=== PATIENT | male | born 1985 | race Caucasian/White ===

== ENCOUNTER 2016-10-02 12:26 | Emergency (ER) | payer MEDICAID, OTHER ==
[2016-10-02 12:36] VITALS: BP 154/98
[2016-10-02] MEDS ORDERED: Cyclobenzaprine TAB* 10 MG PO ONE (14:01)
[2016-10-02] MEDS ORDERED: Ibuprofen TAB* 800 MG PO ONE (14:01)
--- NOTE | 2016-10-09 15:29 | ED ---
Neck Pain - HPI Summary HPI Summary: Pt here w/ Rt sided cervical pain x past few days. Started as a soreness/ stiffness and has been progressing. Difficulty rotating his neck. Admits he's on his computer many hours a day and this may have caused and worsened his sx. He's tried low dose ibuprofen w/ brief relief. Denies numbness, tingling, weakness into arm and no headache, fever, chills or change in vision. He's here because the pain is becoming constant and he's not sure what to do. No known h/ o neck, back or shoulder injury. Reports this has happened in the past but usually goes away on it's own after a few days. - History of Current Complaint Chief Complaint: EDNeckComplaint Stated Complaint: NECK PAIN Time Seen by Provider: 10/02/16 12:45 Hx Obtained From: Patient Pain Intensity: 6 Pain Scale Used: 0-10 Numeric - Allergies/Home Medications Allergies/Adverse Reactions: Allergies Allergy/AdvReac Type Severity Reaction Status Date / Time Codeine Allergy asthma Verified 10/08/16 18:15 attack Diphenhydramine Allergy asthma Verified 10/08/16 18:15 [From Benadryl] attack, sob PMH/Surg Hx/FS Hx/Imm Hx Previously Healthy: Yes Endocrine/Hematology History: Denies: Hx Anticoagulant Therapy, Hx Blood Disorders Infectious Disease History: Yes Infectious Disease History: Denies: Traveled Outside the [place] in Last 30 Days - Social History Alcohol Use: None Hx Substance Use: No Substance Use Type: Reports: None Hx Tobacco Use: No Smoking Status (MU): Never Smoked Tobacco Review of Systems Negative: Fever, Chills, Fatigue Negative: Photophobia, Blurred Vision, Diplopia Negative: Sore Throat, Ear Ache, Nasal Discharge Negative: Chest Pain Negative: Shortness Of Breath Negative: Abdominal Pain, Vomiting, Diarrhea, Nausea Positive: no symptoms reported Musculoskeletal: Other - see HPI Negative: Rash, Bruising Neurological: Negative Psychological: Normal All Other Systems Reviewed And Are Negative: Yes Physical Exam Triage Information Reviewed: Yes Vital Signs On Initial Exam: Initial Vitals Temp Pulse Resp BP Pulse Ox 98.0 F 76 16 154/98 100 10/02/16 12:30 10/02/16 12:30 10/02/16 12:30 10/02/16 12:30 10/02/16 12:30 Vital Signs Reviewed: Yes Appearance: Positive: Well-Appearing, Well-Nourished, Pain Distress - mild Skin: Positive: Warm, Dry - no ecchymosis nor erythema over affected area Head/Face: Positive: Normal Head/Face Inspection - sinuses NTTP Eyes: Positive: Normal, EOMI, YAJAIRA, Conjunctiva Clear ENT: Positive: Normal ENT inspection, Hearing grossly normal, Pharynx normal, TMs normal. Negative: Nasal congestion, Nasal drainage Dental: Negative: Abscess @ Neck: Positive: No Lymphadenopathy, Other: - hypertonic paracervical and trapezius mm Lt > Rt - TTP into Respiratory/Lung Sounds: Positive: Clear to Auscultation, Breath Sounds Present. Negative: Rales, Rhonchi, Stridor, Wheezes Cardiovascular: Positive: Normal, RRR, Pulses are Symmetrical in both Upper and Lower Extremities Musculoskeletal: Positive: Strength/ROM Intact - UE's FROM w/o restriction; Lt shoulder abduction end range trigger neck discomfort; spinous pp are NTTP, Limited @ - cervical ROM limited d/t stiffness/pain Neurological: Positive: Normal, Sensory/Motor Intact, Alert, Oriented to Person Place, Time, CN Intact II-III, Reflexes Intact Psychiatric: Positive: Normal - Liset Coma Scale Coma Scale Total: 15 Diagnostics - Vital Signs Vital Signs Temp Pulse Resp BP Pulse Ox 10/02/16 14:19 15 10/02/16 12:30 98.0 F 76 16 154/98 100 - Laboratory Lab Statement: Any lab studies that have been ordered have been reviewed, and results considered in the medical decision making process. Neck Course/Dx - Diagnoses Provider Diagnoses: CERVICAL STRAIN Discharge - Discharge Plan Condition: Stable Disposition: HOME Prescriptions: Cyclobenzaprine TAB* [Flexeril TAB*] 10 mg PO TID PRN #15 tab PRN Reason: Pain Patient Education Materials: Cervical Strain (ED) Referrals: Carolee Burton MD [Medical Doctor] - Additional Instructions: Heat in the morning with gentle stretches followed by ice. You may also take ibuprofen with food as needed for pain Additionally, a muscle relaxer has been prescribed. If your pain does not improve with ibuprofen, you may take this however note it may make you drowsy. Follow-up with PCP this week as you may benefit from a referral to physical therapy. *If you develop headache, weakness, change in vision, vomiting, fever, return to ED
== END 2016-10-02 14:19 | disposition home or self-care (01) ==
LOC: SUPCPDRO 12:26 → ED 12:26
DX: S16.1XXA Strain of muscle, fascia and tendon at neck level, initial encounter (principal); M54.2 Cervicalgia; X58.XXXA Exposure to other specified factors, initial encounter; Y93.89 Activity, other specified; Y92.9 Unspecified place or not applicable; Y99.9 Unspecified external cause status
CPT/HCPCS: 99282; A9270-GY

== ENCOUNTER 2016-10-08 18:10 | Emergency (ER) | payer MEDICAID ==
[2016-10-08 18:15] VITALS: BP 131/75
--- NOTE | 2016-10-08 19:33 | ED ---
Neck Pain - HPI Summary HPI Summary: 31 M presents with neck pain for a couple months. He states his pain has increased over the past couple days. He was seen here on Wednesday and was diagnosed with a cervical strain. He states that the flexeril and ibuprofen helped. His pain is not midline. He denies any numbness, tingling, or weakness into his arms. The location of his pain has not changed over the past month. He denies any injury to the area. He states the pain has caused him to not move his neck as much. He states that when he moved his neck he gets a pulling sensation in his muscles. - History of Current Complaint Chief Complaint: EDNeckComplaint Stated Complaint: NECK PAIN Time Seen by Provider: 10/08/16 19:23 Pain Intensity: 8 - Allergies/Home Medications Allergies/Adverse Reactions: Allergies Allergy/AdvReac Type Severity Reaction Status Date / Time Codeine Allergy asthma Verified 10/08/16 18:15 attack Diphenhydramine Allergy asthma Verified 10/08/16 18:15 [From Benadryl] attack, sob PMH/Surg Hx/FS Hx/Imm Hx Endocrine/Hematology History: Denies: Hx Diabetes Cardiovascular History: Denies: Hx Hypertension Infectious Disease History: No Infectious Disease History: Denies: Traveled Outside the [place] in Last 30 Days - Family History Known Family History: Negative: Cardiac Disease - Social History Alcohol Use: None Substance Use Type: Reports: None Smoking Status (MU): Never Smoked Tobacco Review of Systems Negative: Fever Negative: Chest Pain Negative: Shortness Of Breath Positive: Myalgia - neck pain All Other Systems Reviewed And Are Negative: Yes Physical Exam Triage Information Reviewed: Yes Vital Signs On Initial Exam: Initial Vitals Temp Pulse Resp BP Pulse Ox 98.3 F 83 16 131/75 100 10/08/16 18:13 10/08/16 18:13 10/08/16 18:13 10/08/16 18:13 10/08/16 18:13 Vital Signs Reviewed: Yes Appearance: Positive: Well-Appearing Skin: Positive: Warm, Dry Head/Face: Positive: Normal Head/Face Inspection Eyes: Positive: Normal, Conjunctiva Clear ENT: Positive: Normal ENT inspection, Pharynx normal, TMs normal Respiratory/Lung Sounds: Positive: Clear to Auscultation, Decreased Breath Sounds Cardiovascular: Positive: Normal, RRR Musculoskeletal: Positive: Limited @ - neck due to pain, Other - good inventory coordinator strength, capillary refill <2 secs, no midline tenderness on palpation, tender over trapezius muscle, Neurological: Positive: Reflexes Intact - biceps Diagnostics - Vital Signs Vital Signs Temp Pulse Resp BP Pulse Ox 10/08/16 18:13 98.3 F 83 16 131/75 100 - Laboratory Lab Statement: Any lab studies that have been ordered have been reviewed, and results considered in the medical decision making process. Neck Course/Dx - Course Course Of Treatment: 31M presents with acute on chronic neck pain, describes it as a pulling sensation, improvement with ibupforen and flexeril but ran out, discussed do not see need for imaging as no injury, no change in pain location, no neuro symptoms, no midline tenderness, will treat conservatively and have follow up with primary which has appointment next week, patient agrees with plan - Diagnoses Differential Dx/HQI/PQRI: Positive: Cervical Fracture, Sprain, Strain Provider Diagnoses: Neck pain Discharge - Discharge Plan Condition: Good Disposition: HOME Prescriptions: Cyclobenzaprine TAB* [Flexeril TAB*] 10 mg PO TID PRN #9 tab PRN Reason: Pain Ibuprofen TAB* [Motrin TAB* 600 MG] 600 mg PO Q6H PRN #25 tab PRN Reason: Pain Lidocaine PATCH 5%* [Lidoderm 5% Patch*] 1 patch TRANSDERM DAILY #5 patch Patient Education Materials: Cervical Strain (ED) Additional Instructions: Take muscle relaxers up to three tablets at night to sleep Apply lidocaine patches to area for up to 12 hours in one 24 hour period Use ibuprofen or Tylenol for pain every 6 hours ice/heat area, move as much as possible Follow up with primary within 5 days, may benefit from PT Return to ED if develop any weakness or numbness or tingling in arms or develop any new or worsening symptoms
[2016-10-08] MEDS ORDERED: Ibuprofen TAB* 600 MG PO ONE (19:37)
[2016-10-08] MEDS ORDERED: Lidocaine PATCH 5%* 1 PATCH TRANSDERM ONE (19:38)
== END 2016-10-08 19:53 | disposition home or self-care (01) ==
LOC: ED 18:10
DX: M54.2 Cervicalgia (principal); Z88.6 Allergy status to analgesic agent
CPT/HCPCS: 99282; A9270-GY

== ENCOUNTER 2016-10-14 13:11 | Emergency (ER) | payer MEDICAID ==
[2016-10-14] MEDS ORDERED: Ketorolac INJ* 30 MG/ML 1 ML VIAL IV PUSH ONE (16:21)
[2016-10-14] MEDS ORDERED: Orphenadrine Citrate IV* 30 MG/ML 2 ML VIAL IV ONE (16:21)
[2016-10-14] MEDS ORDERED: HYDROcodone/ACETAMIN 5-325 MG* 1 TAB PO ONE ×2 (16:25→20:49)
--- NOTE | 2016-10-14 16:33 | ED ---
Neck Pain - HPI Summary HPI Summary: 31M presents with neck pain for 2 weeks. He denies any injury when the pain started. He did say that he was sitting for a long period of time in a uncomfortable chair working on his computer. He states the pain started on the right side of his neck but has moved to the left side of his neck. He states the pain is so intense that it makes him feel weak. He denies any numbness or tingling or midline tenderness. He has taken flexeril for his pain which he said helps but he ran out. He was also given lidocaine patches which his insurance company would not cover. He was seen by his primary and prescribed norco which he said helped but he ran out. His primary did lab work which he said was abnormal but they never told him that was wrong. He was suppose to follow up with his primary today but the pain was so bad that he could not go to his appointment. He has been holding his neck in flexion and does not want to move it do to the pain. Last dose of ibuprofen was last night. - History of Current Complaint Pain Intensity: 10 <Venecia Seth - Last Filed: 10/14/16 21:32> <Luis Mejia - Last Filed: 10/15/16 12:31> - History of Current Complaint Chief Complaint: EDNeckComplaint Stated Complaint: NECK PAIN - 1WK Time Seen by Provider: 10/14/16 16:05 - Allergies/Home Medications Allergies/Adverse Reactions: Allergies Allergy/AdvReac Type Severity Reaction Status Date / Time Codeine Allergy asthma Verified 10/08/16 18:15 attack Diphenhydramine Allergy asthma Verified 10/08/16 18:15 [From Benadryl] attack, sob PMH/Surg Hx/FS Hx/Imm Hx Endocrine/Hematology History: Denies: Hx Diabetes Cardiovascular History: Denies: Hx Hypertension Infectious Disease History: No Infectious Disease History: Denies: Traveled Outside the [place] in Last 30 Days - Family History Known Family History: Negative: Cardiac Disease - Social History Alcohol Use: None Substance Use Type: Reports: None Smoking Status (MU): Never Smoked Tobacco <Venecia Seth - Last Filed: 10/14/16 21:32> Review of Systems Negative: Fever Negative: Chest Pain Negative: Shortness Of Breath Positive: Myalgia - neck pain All Other Systems Reviewed And Are Negative: Yes <Arabella Sethbeth - Last Filed: 10/14/16 21:32> Physical Exam Triage Information Reviewed: Yes Vital Signs On Initial Exam: Initial Vitals Temp Pulse Resp BP Pulse Ox 99.2 F 132 20 110/67 100 10/14/16 13:22 10/14/16 13:22 10/14/16 13:22 10/14/16 13:22 10/14/16 13:22 Vital Signs Reviewed: Yes Appearance: Positive: Pain Distress Skin: Positive: Warm, Dry Head/Face: Positive: Normal Head/Face Inspection Eyes: Positive: Normal, Conjunctiva Clear ENT: Positive: Normal ENT inspection, Pharynx normal, TMs normal, Other - when touched ear yelled in pain but no evidence of otitis externa or interna on exam Neck: Positive: Supple, No Lymphadenopathy, Other: - no midline tenderness, muscle spasms presents on side of neck, refuses to move neck due to pain Respiratory/Lung Sounds: Positive: Clear to Auscultation, Breath Sounds Present Cardiovascular: Positive: Normal, RRR Musculoskeletal: Positive: Strength/ROM Intact - of upper extremities, Other - good pulses, capillary refill <2 secs, tender to palpation over sides of neck, no erythema present on neck Neurological: Positive: Sensory/Motor Intact, Reflexes Intact - biceps <DorindaVenecia - Last Filed: 10/14/16 21:32> Vital Signs On Initial Exam: Initial Vitals Temp Pulse Resp BP Pulse Ox 99.2 F 132 20 110/67 100 10/14/16 13:22 10/14/16 13:22 10/14/16 13:22 10/14/16 13:22 10/14/16 13:22 <Luis Mejia - Last Filed: 10/15/16 12:31> Diagnostics - Vital Signs Vital Signs Temp Pulse Resp BP Pulse Ox 10/14/16 13:22 99.2 F 132 20 110/67 100 - Laboratory Result Diagrams: 10/14/16 16:32 10/14/16 16:32 Lab Statement: Any lab studies that have been ordered have been reviewed, and results considered in the medical decision making process. - CT neck CT Interpretation: Positive (See Comments) - IMPRESSION: 1. The constellation of findings is consistent with deep soft tissue inflammatory change within the anterior and posterior neck. No loculated abscess collection evident within limits of noncontrast CT. Correlate with clinical assessment and consider contrast-enhanced CT of the neck for further assessment. 2. Negative for lymphadenopathy. 3. No abnormality of the bony cervical spine evident. CT Interpretation Completed By: Radiologist soft tissue CT Interpretation: Positive (See Comments) - IMPRESSION: 1. The constellation of findings is consistent with deep soft tissue inflammatory change within the anterior and posterior neck. No loculated abscess collection evident. 2. Negative for lymphadenopathy. CT Interpretation Completed By: Radiologist <Venecia Seth - Last Filed: 10/14/16 21:32> - Vital Signs Vital Signs Temp Pulse Resp BP Pulse Ox 10/14/16 21:22 98.9 F 90 16 112/74 10/14/16 18:51 18 10/14/16 15:45 98.5 F 92 18 110/74 99 10/14/16 13:22 99.2 F 132 20 110/67 100 - Laboratory Lab Results: Lab Results 10/14/16 10/14/16 Range/Units 16:32 16:32 WBC 6.3 (3.5-10.8) 10^3/ul RBC 4.61 (4.0-5.4) 10^6/ul Hgb 12.1 L (14.0-18.0) g/dl Hct 35 L (42-52) % MCV 77 L (80-94) fL MCH 26 L (27-31) pg MCHC 34 (31-36) g/dl RDW 13 (10.5-15) % Plt Count 203 (150-450) 10^3/ul MPV 8 (7.4-10.4) um3 Neut % (Auto) 82.6 (38-83) % Lymph % (Auto) 5.0 L (25-47) % [place] % (Auto) 11.9 H (1-9) % Eos % (Auto) 0.1 (0-6) % Baso % (Auto) 0.4 (0-2) % Absolute Neuts (auto) 5.2 (1.5-7.7) 10^3/ul Absolute Lymphs (auto) 0.3 L (1.0-4.8) 10^3/ul Absolute Monos (auto) 0.7 (0-0.8) 10^3/ul Absolute Eos (auto) 0 (0-0.6) 10^3/ul Absolute Basos (auto) 0 (0-0.2) 10^3/ul Absolute Nucleated RBC 0.01 10^3/ul Nucleated RBC % 0.1 ESR 105 H (0-14) mm/Hr Sodium 127 L (133-145) mmol/L Potassium 3.0 L (3.5-5.0) mmol/L Chloride 88 L (101-111) mmol/L Carbon Dioxide 27 (22-32) mmol/L Anion Gap 12 H (2-11) mmol/L BUN 17 (6-24) mg/dL Creatinine 1.18 H (0.67-1.17) mg/dL Est GFR ( Amer) 92.6 (>60) Est GFR (Non-Af Amer) 72.0 (>60) BUN/Creatinine Ratio 14.4 (8-20) Glucose 111 H (70-100) mg/dL Calcium 9.7 (8.6-10.3) mg/dL Total Bilirubin 1.10 H (0.2-1.0) mg/dL AST 62 H (13-39) U/L ALT 43 (7-52) U/L Alkaline Phosphatase 129 H (34-104) U/L C-React Prot High Sens 180.01 mg/L Total Protein 8.2 (6.4-8.9) g/dL Albumin 3.8 (3.2-5.2) g/dL Globulin 4.4 H (2-4) g/dL Albumin/Globulin Ratio 0.9 L (1-3) Result Diagrams: 10/14/16 16:32 10/14/16 16:32 Lab Statement: Any lab studies that have been ordered have been reviewed, and results considered in the medical decision making process. <Luis Mejia - Last Filed: 10/15/16 12:31> Neck Course/Dx - Course Course Of Treatment: 31 M presents with neck pain for 2 weeks, no trauma, no neuro symptoms, pain is not midline, has been seen here twice once by me and pain is in the same area as before, was being followed by [facility] and [facility] but ran out and states pain has become worst, states has been unable to move neck due to pain, no midline tenderness, states that lab work was abnormal at PCP but does not know what but they were going to start him on prednisone but they did not, states has not eaten much since wednesday due to too much pain to make meals, will check labs and get CT neck as previous xray was negative, CT shows deep soft tissue inflammatory change within anteroir and posteroir neck. called dr mehta who said have dr main examine the patient, dr main said to have CT with contrast performed, CT same reading as previous CT, discussed with dr Gee who said do not deal with conditions of the neck, Dr mehta looked at CT and did not see anything urgent, labs does not have WBC count but does have elevated CRP and ESR, has low K and NA gave fluids and oral K, discussed with dr mejia and dr main will d/c with pain medication and prednisone and have follow up with primary, warned of warning signs of infection and to return immediately, patient agrees with plan - Diagnoses Differential Dx/HQI/PQRI: Positive: Cervical Fracture, Sprain, Strain - Physician Notifications Discussed Care Of Patient With: dr mehta Time Discussed With Above Provider: 17:48 - have dr main see patient and give opinoin <Venecia Seth - Last Filed: 10/14/16 21:32> - Course Assessment/Plan: Patient was presented to Dr. main and seen and examined by Dr. Main <Luis Mejia - Last Filed: 10/15/16 12:31> - Diagnoses Provider Diagnoses: Neck pain Discharge <Venecia Seth - Last Filed: 10/14/16 21:32> <Luis Mejia - Last Filed: 10/15/16 12:31> - Discharge Plan Condition: Stable Disposition: HOME Prescriptions: HYDROcodone/ACETAMIN 5-325 MG* [[place] 5-325 TAB*] 1 tab PO Q6H PRN #12 tab MDD 4 PRN Reason: Pain Methylprednisolone [Medrol Dosepak 4 MG*] 4 mg PO .SEE PRESTON INSTRUCTION #1 packet Referrals: Carolee Burton MD [Medical Doctor] - Additional Instructions: Follow up with primary as soon as possible Take steroid packet as prescribed Use ibuprofen for pain every 6 hours and narcoctic for break through pain Return to ED if develop any fever, spreading redness on neck, shortness of breath or any new or worsening symptoms
[2016-10-14 16:45] LABS: Hematocrit 35 % (42-52); Hemoglobin 12.1 g/dl (14.0-18.0); Mean Corpuscular HGB Conc 34 g/dl (31-36); Mean Corpuscular Hemoglobin 26 pg (27-31); Mean Corpuscular Volume 77 fL (80-94); Mean Platelet Volume 8 um3 (7.4-10.4); Red Blood Count 4.61 10^6/ul (4.0-5.4); Red Cell Distribution Width 13 % (10.5-15); White Blood Count 6.3 10^3/ul (3.5-10.8)
[2016-10-14 16:49] LABS: Add Diff/Slide Review? Slide Review Added; Comments Flag Yes
[2016-10-14 17:06] LABS: Albumin 3.8 g/dL (3.2-5.2); BUN/Creatinine Ratio 14.4 (8-20); Calcium 9.7 mg/dL (8.6-10.3); EGFR African American 92.6 (>60); Globulin 4.4 g/dL (2-4); Total Bilirubin 1.1 mg/dL (0.2-1.0); Total Protein 8.2 g/dL (6.4-8.9)
[2016-10-14] MEDS ORDERED: NS 0.9% 1000 ML* 2,000 ML IV ONE (17:35)
--- NOTE | 2016-10-14 17:36 | RAD ---
INDICATION: LEFT worse than RIGHT bilateral neck pain for over one month worst in the last 2 weeks. Posterior pain with flexion. COMPARISON: January 20, 2012 CT. TECHNIQUE: Multidetector CT images foramen magnum to lung apices without contrast. Multiplanar reformation. REPORT: There is increased density/reticulation of the fat within the RIGHT posterior cervical space between the sternocleidomastoid muscle and paraspinal portion of the perivertebral muscular space as well as within the paraspinal portion of the RIGHT perivertebral muscular space with obscuration of the normal fascial planes between the skeletal musculature. Similar although less prominent finding evident at the paraspinal portion of the LEFT perivertebral muscular space. There is also bilateral edema and anterior posterior thickening of the mucosal pharyngeal space anterior to the spine from the level of the nasopharynx superiorly through the hyoid bone inferiorly. No loculated fluid collection evident within limits of noncontrast CT. Negative for abnormal soft tissue gas. No lymphadenopathy evident within the [id number]. Unremarkable visualized parotid and submandibular glands as well as the thyroid gland. Negative for cervical vertebral body fracture, osteolysis, or focal osseous lesion. Normal vertebral alignment and preserved disc spaces. 2 cm mucous retention cyst or polyp noted in the floor of the LEFT maxillary sinus. No paranasal sinus fluid levels evident within the [id number]. Clear mastoid air spaces. IMPRESSION: 1. The constellation of findings is consistent with deep soft tissue inflammatory change within the anterior and posterior neck. No loculated abscess collection evident within limits of noncontrast CT. Correlate with clinical assessment and consider contrast-enhanced CT of the neck for further assessment. 2. Negative for lymphadenopathy. 3. No abnormality of the bony cervical spine evident. Results discussed with HANNAH Seth 10/14/2016 5:32 PM EST
[2016-10-14] MEDS ORDERED: Iohexol 300* (CONTRAST) 10 ML SDV IV ONE (18:04)
[2016-10-14] MEDS ORDERED: HYDROmorphone INJ* 1 MG/ML CARPUJECT SYRINGE IV SLOW PU ONE (18:07)
--- NOTE | 2016-10-14 19:46 | RAD ---
INDICATION: LEFT worse than RIGHT bilateral neck pain for over one month worst in the last 2 weeks. Posterior pain with flexion. COMPARISON: January 20, 2012 CT. TECHNIQUE: Multidetector CT images foramen magnum to lung apices with 50 mL Omnipaque 300 IV contrast. Multiplanar reformation. REPORT: There is increased density/reticulation of the fat within the RIGHT posterior cervical space between the sternocleidomastoid muscle and paraspinal portion of the perivertebral muscular space as well as within the paraspinal portion of the RIGHT perivertebral muscular space with obscuration of the normal fascial planes between the skeletal musculature. Similar although less prominent finding evident at the paraspinal portion of the LEFT perivertebral muscular space. There is also bilateral edema and anterior posterior thickening of the mucosal pharyngeal space anterior to the spine from the level of the nasopharynx superiorly through the hyoid bone inferiorly. No loculated fluid collection evident. Negative for abnormal soft tissue gas. No abnormality evident within the cervical spinal canal within limits of CT. No lymphadenopathy evident within the [id number]. Unremarkable visualized parotid and submandibular glands as well as the thyroid gland. While poorly opacified due to timing of the contrast bolus above the C2 level the bilateral internal jugular veins appear patent inferior to the C2 level. Limited images through the superior mediastinum are remarkable for a normal range small volume of residual thymus tissue in the anterior mediastinum. Negative for enhancement or other abnormality at the disc spaces. Negative for osteolysis within the [id number]. 2 cm mucous retention cyst or polyp noted in the floor of the LEFT maxillary sinus. No paranasal sinus fluid levels evident within the [id number]. Clear mastoid air spaces. IMPRESSION: 1. The constellation of findings is consistent with deep soft tissue inflammatory change within the anterior and posterior neck. No loculated abscess collection evident. 2. Negative for lymphadenopathy.
[2016-10-14] MEDS ORDERED: methylPREDNISolone 125 MG* 2 ML VIAL IV ONE (20:26)
[2016-10-14] MEDS ORDERED: Potassium Chlor TAB* 20 MEQ TAB.ER PO ONE (20:42)
[2016-10-14 21:05] LABS: Erythrocyte Sed Rate 105 mm/Hr (0-14)
[2016-10-14 21:23] VITALS: BP 112/74
--- NOTE | 2016-10-17 08:10 | CONSULT ---
Consult Consult: Armand Villafuerte presented to the ED with the C/O a month of neck pain for which he had been seen previously and had xrays. He denied fevers or other C/O but described the pain as severe with any movement. He was seen by [facility]NE[facility] Seth and W/U thoroughly with CT and labs. His plain CT showed inflammatory changes and there was some concern for necrotizing fascitis so I was asked to evaluate him. Mr. Villafuerte was certainly insignificant pain in spite of having multiple medications in the ED including NSAIDS, muscle relaxers and narcotics. He had originally presented tachycardic but was not when I saw him after fluids and meds. His neck was tender paracervically and to any ROM. He was afebrile and his WBC's ere normal without shift. His CRP was quite elevated at 180. This seemed more inflammatory than infectious to me especially given the length of time. An NELLA and ESR were added and the CT was repeated with contrast. The ESR was elevated and 100 and the NELLA still pending at D/C. His repeat CT was the same and I recommended he be treated with steroids. I'm not sure what is going on but I don't think it is infectious but it is inflammatory and steroids should help. He will need more W/U as an outpatient.
== END 2016-10-14 21:22 | disposition home or self-care (01) ==
LOC: ED 13:11
DX: M54.2 Cervicalgia (principal)
CPT/HCPCS: 36415; 70491; 72125; 80053; 85025; 85652; 86038; 86141; 99283; A9270-GY; J1170; J1885; J2360; J2930; Q9967

== ENCOUNTER 2017-05-18 04:41 | Emergency (ER) | payer MEDICAID, OTHER ==
[2017-05-18] MEDS ORDERED: Cyclobenzaprine TAB* 10 MG PO ONE (05:43)
[2017-05-18] MEDS ORDERED: Ibuprofen TAB* 800 MG PO ONE (05:43)
[2017-05-18 05:59] VITALS: BP 116/59
--- NOTE | 2017-05-18 06:59 | ED ---
I, Torsten,Perri, scribed for Navin Hadley MD on 05/18/17 at 0655 . Back Pain - HPI Summary HPI Summary: This 32 y/o male presents to ED for neck and back pain that started 2 days ago and worse tonight. PMHx does include known chronic neck and back pain. No known injury. Pt previously visited ED, during which pt was treated with IBP 800 mg and flexeril. Negative weakness at all four extremities. PMHx includes asthma as a child. Negative Hx of HTN. Primary care involves Dr. Burton. - History of Current Complaint Chief Complaint: EDGeneral Stated Complaint: NECK PAIN Time Seen by Provider: 05/18/17 05:33 Hx Obtained From: Patient, Medical Records Onset/Duration: Gradual Onset Onset/Duration: Started Days Ago, Atraumatic, Still Present Timing: Constant Pain Intensity: 6 Pain Scale Used: 0-10 Numeric Character: Dull, Stiffness Aggravating Symptom(s): Movement Alleviating Symptom(s): Rest Associated Signs And Symptoms: Positive: Negative - Allergies/Home Medications Allergies/Adverse Reactions: Allergies Allergy/AdvReac Type Severity Reaction Status Date / Time Codeine Allergy asthma Verified 10/08/16 18:15 attack Diphenhydramine Allergy asthma Verified 10/08/16 18:15 [From Benadryl] attack, sob PMH/Surg Hx/FS Hx/Imm Hx Endocrine/Hematology History: Denies: Hx Diabetes Cardiovascular History: Denies: Hx Hypertension Infectious Disease History: Denies: Traveled Outside the [place] in Last 30 Days - Family History Known Family History: Negative: Cardiac Disease - Social History Alcohol Use: None Substance Use Type: Reports: None Smoking Status (MU): Never Smoked Tobacco Review of Systems Negative: Fever Positive: Other - neck pain and back pain. Negative: Weakness, Numbness All Other Systems Reviewed And Are Negative: Yes Physical Exam - Summary Physical Exam Summary: The patient is well-nourished in no acute distress and in no acute pain. The skin is warm and dry and skin color reflects adequate perfusion. HEENT: The head is normocephalic and atraumatic. The pupils are equal and reactive. The conjunctivae are clear and without drainage. Nares are patent and without drainage. Mouth reveals moist mucous membranes and the throat is without erythema and exudate. The external ears are intact. The ear canals are patent and without drainage. The tympanic membranes are intact. Neck is supple with full range of motion and non-tender. There are no carotid bruits. There is no neck vein distension. Pain with movement. FROM. Respiratory: Chest is non-tender. Lungs are clear to auscultation and breath sounds are symmetrical and equal. Cardiovascular: Hear is regular rate and rhythm. There is no murmur or rub auscultated. There is no peripheral edema and pulses are symmetrical and equal. Abdomen: The abdomen is soft and non-tender. There are normal bowel sounds heard in all four quadrants and there is no organomegaly palpated. Musculoskeletal: There is no back pain noted. Extremities are non-tender with full range of motion. There is good capillary refill. There is no peripheral edema or calf tenderness elicited. Neurological: Patient is alert and oriented to person, place and time. The patient has symmetrical motor strength in all four extremities. Cranial nerves are grossly intact. Deep tendon reflexes are symmetrical and equal in all four extremities. Psychiatric: The patient has an appropriate affect and does not exhibit any anxiety or depression. Triage Information Reviewed: Yes Vital Signs On Initial Exam: Initial Vitals Temp Pulse Resp BP Pulse Ox 98.7 F 88 17 120/58 97 05/18/17 04:54 05/18/17 04:54 05/18/17 04:54 05/18/17 04:54 05/18/17 04:54 Vital Signs Reviewed: Yes Diagnostics - Vital Signs Vital Signs Temp Pulse Resp BP Pulse Ox 05/18/17 04:54 98.7 F 88 17 120/58 97 - Laboratory Lab Statement: Any lab studies that have been ordered have been reviewed, and results considered in the medical decision making process. Back Pain Course/Dx - Course Assessment/Plan: This 32 y/o male presents to ED for acute on chronic neck pain since yesterday. Pt states that he visited ED before with similar complaints and controlled pain with ibuprofen 800 mg and cyclobenzaprine. Pt visits ED for pain control. Upon examination pt is noted with FROM of neck but complaints of pain with lateral movement of neck. Pt is sent home with after symptomatic treatment with ibuprofen 800 mg and cyclobenzaprine and rx to go home. - Diagnoses Differential Diagnosis/HQI/PQRI: Positive: Strain, Sprain Provider Diagnoses: Cervical strain Provider Diagnoses: (Ruled Out): Cervical pain Discharge - Discharge Plan Condition: Stable Disposition: HOME Prescriptions: Cyclobenzaprine TAB* [Flexeril 10 MG TAB*] 10 mg PO TID PRN #30 tab PRN Reason: pain Ibuprofen TAB* [Motrin TAB* 800 MG] 800 mg PO TID PC #30 tab Patient Education Materials: Ibuprofen (By mouth), Cyclobenzaprine (By mouth), Cervical Strain (ED), Neck Pain (ED) Referrals: Carolee Burton MD [Medical Doctor] - 2 Days The documentation as recorded by the Torsten nicole Soohyun accurately reflects the service I personally performed and the decisions made by , Navin Hadley MD.
== END 2017-05-18 05:57 | disposition home or self-care (01) ==
LOC: ED 04:41
DX: S16.1XXA Strain of muscle, fascia and tendon at neck level, initial encounter (principal); X58.XXXA Exposure to other specified factors, initial encounter; Y93.9 Activity, unspecified; Y92.9 Unspecified place or not applicable; M54.6 Pain in thoracic spine; Z88.5 Allergy status to narcotic agent
CPT/HCPCS: 99282; A9270-GY

== ENCOUNTER 2017-05-31 22:02 | Emergency (ER) | payer OTHER ==
[2017-05-31 22:24] VITALS: BP 95/57
[2017-05-31] MEDS ORDERED: Ibuprofen TAB* 600 MG PO ONE (23:28)
--- NOTE | 2017-05-31 23:44 | ED ---
Upper Extremity Pain - HPI Summary HPI Summary: Patient presents with left hand pain after punching a wall a few hours prior to arrival. ETOH on board. Denies drug use. Patient is requesting antibiotics d.t the abrasions over the 2nd, 3rd and 4ths MCP joints. He is able to make a fist and flex and extend at the wrists and MCP joint with mild pain. No deformities or discolorations noted. Denies numbness or tingling. Pulses +2 bilaterally and cap refill < 2 sec. Patient notes to 5/10 pain. He has never injured the hand before. - History of Current Complaint Chief Complaint: EDExtremityUpper Stated Complaint: LT HAND INJURY Time Seen by Provider: 05/31/17 22:36 Hx Obtained From: Patient Mechanism Of Injury: Direct Blow Onset/Duration: Started Hours Ago Timing: Constant Severity Initially: Moderate Severity Currently: Moderate Pain Location: Hand Character: Aching Aggravating Factor(s): Movement, Lifting, Extension, Internal/External Rotation Alleviating Factor(s): Rest, Ice Associated Signs & Symptoms: Positive: Redness Related History: Dominant Hand Right - Risk Factors Non-Orthopedic Risk Factor: Negative DVT Risk Factors: Negative Septic Arthritis Risk Factor: Negative Compartment Syndrome Risk Factors: Pain - Allergies/Home Medications Allergies/Adverse Reactions: Allergies Allergy/AdvReac Type Severity Reaction Status Date / Time Codeine Allergy asthma Verified 05/31/17 22:22 attack Diphenhydramine Allergy asthma Verified 05/31/17 22:22 [From Benadryl] attack, sob PMH/Surg Hx/FS Hx/Imm Hx Previously Healthy: Yes Endocrine/Hematology History: Denies: Hx Diabetes Cardiovascular History: Denies: Hx Hypertension - Immunization History Hx Pertussis Vaccination: No Immunizations Up to Date: Unable to Obtain/Confirm Infectious Disease History: No Infectious Disease History: Denies: Traveled Outside the [place] in Last 30 Days - Family History Known Family History: Negative: Cardiac Disease - Social History Occupation: Employed Part-time Lives: Alone Alcohol Use: None Hx Substance Use: No Substance Use Type: Reports: None Hx Tobacco Use: No Smoking Status (MU): Never Smoked Tobacco Review of Systems Constitutional: Negative Eyes: Negative Cardiovascular: Negative Respiratory: Negative Positive: no symptoms reported, see HPI Positive: Arthralgia - right MCP joint pain Positive: Other - abrasions Neurological: Negative Psychological: Normal All Other Systems Reviewed And Are Negative: Yes Physical Exam Triage Information Reviewed: Yes Vital Signs On Initial Exam: Initial Vitals Temp Pulse Resp BP Pulse Ox 96.0 F 121 16 95/57 96 05/31/17 22:23 05/31/17 22:23 05/31/17 22:23 05/31/17 22:23 05/31/17 22:23 Vital Signs Reviewed: Yes Appearance: Positive: Well-Appearing, Well-Nourished Skin: Positive: Warm, Skin Color Reflects Adequate Perfusion, Other - abrasions noted over the left 2nd, 3rd and 4th MCP joints Head/Face: Positive: Normal Head/Face Inspection Eyes: Positive: EOMI, YAJAIRA, Conjunctiva Clear Neck: Positive: Supple, No Lymphadenopathy Respiratory/Lung Sounds: Positive: Clear to Auscultation, Breath Sounds Present Cardiovascular: Positive: Normal, RRR, Pulses are Symmetrical in both Upper and Lower Extremities Musculoskeletal: Positive: Normal, Strength/ROM Intact, Pain @ - 2nd, 3rd and 4th MCP joints with pain Neurological: Positive: Speech Normal Psychiatric: Positive: Normal AVPU Assessment: Alert Diagnostics - Vital Signs Vital Signs Temp Pulse Resp BP Pulse Ox 05/31/17 22:23 96.0 F 121 16 95/57 96 - Laboratory Lab Statement: Any lab studies that have been ordered have been reviewed, and results considered in the medical decision making process. Course/Dx - Course Course Of Treatment: Patient sent to xray. Read by Barbara and Dr. Washington in ED with no acute findings. Patients abrasions treated with antibiotic ointment and bandaged. Patient is requesting antibiotics d.t the abrasions over the 2nd, 3rd and 4ths MCP joints, but it was explained to patient, oral antibiotics is not required for type of injury. Tetanus UTD. Ibuprofen given in ED. He is able to make a fist and flex and extend at the wrists and MCP joint with mild pain. No deformities or discolorations noted. Denies numbness or tingling. Pulses +2 bilaterally and cap refill < 2 sec. Patient notes to 5/10 pain. He has never injured the hand before. - Diagnoses Differential Diagnosis/HQI/PQRI: Positive: Contusion, Other - abrasions, closed fracture Provider Diagnoses: Abrasion, Hand contusion Discharge - Discharge Plan Condition: Stable Disposition: HOME Patient Education Materials: Contusion in Adults (ED), Abrasion (ED) Referrals: Carolee Burton MD [Primary Care Provider] - Additional Instructions: Ibuprofen 600mg three times daily Ice to the area 3-4 times per day Continue with bandage x 2 days. Take off current bandage and replace with bandaids with antibiotic ointment.
--- NOTE | 2017-06-01 07:53 | RAD ---
INDICATION: Left hand pain. TECHNIQUE: 4 views of the left hand were obtained. FINDINGS: There is soft tissue swelling noted dorsal to the metacarpal bones. The bones are in normal alignment. No fracture is seen. Joint spaces appear maintained. IMPRESSION: SOFT TISSUE SWELLING, NO FRACTURE IS SEEN. IF THE PATIENT'S SYMPTOMS PERSIST, RECOMMEND FOLLOW-UP IMAGING.
== END 2017-06-01 00:15 | disposition home or self-care (01) ==
LOC: ED 22:02
DX: S60.512A Abrasion of left hand, initial encounter (principal); S60.222A Contusion of left hand, initial encounter; W22.01XA Walked into wall, initial encounter; Y93.9 Activity, unspecified; Y92.9 Unspecified place or not applicable; Y99.9 Unspecified external cause status
CPT/HCPCS: 99281

== ENCOUNTER 2017-10-26 12:38 | Emergency (ER) | payer OTHER ==
[2017-10-26] MEDS ORDERED: Lidocaine 1%* 5 ML VIAL ONE (13:49)
[2017-10-26] MEDS ORDERED: Sulfamethox/Trimethoprim DS 800/160* TAB PO ONE (14:08)
[2017-10-26] MEDS ORDERED: Lidocaine 1%* 5 ML VIAL INJ ONE (14:08)
[2017-10-26 14:28] VITALS: BP 124/77
--- NOTE | 2017-10-27 08:55 | PN ---
Progress Note - Progress Note Date of Service: 10/26/17 Note: wound culture results obtained. patient had abscess that was I&D. placed on bactrim at d/c. MRSA negative and s. aureus positive. no further action required at this time as bactrim as appropriate coverage.
--- NOTE | 2017-10-27 17:53 | ED ---
Alvarado Dunlap Angela, scribed for Luis Mejia MD on 10/26/17 at 1347 . Skin Complaint - HPI Summary HPI Summary: This pt is a 32 y/o male presenting to [facility] for a left arm abscess. Pt reports he is a current IV drug user. 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 Pt notes his abscess is painful and red. Denies any recent surgeries. Denies any other PMHx. - History of Current Complaint Chief Complaint: EDRashSkinAbscess Time Seen by Provider: 10/26/17 13:43 Stated Complaint: ABCESS ON ARM Hx Obtained From: Patient Onset/Duration: Started Days Ago, Still Present Skin Exposure Onset/Duration: Days Ago Timing: Lasting Days Current Severity: Moderate Pain Intensity: 6 Pain Scale Used: 0-10 Numeric Skin Location: Arm - left Character: Pain, Redness Aggravating Symptom(s): Nothing Alleviating Symptom(s): Nothing Associated Signs & Symptoms: Tenderness Related History: Other: - current IVDU - Allergy/Home Medications Allergies/Adverse Reactions: Allergies Allergy/AdvReac Type Severity Reaction Status Date / Time MS Codeine [Codeine] Allergy asthma Verified 05/31/17 22:22 attack MS Diphenhydramine Allergy asthma Verified 05/31/17 22:22 [From Benadryl] attack, sob PMH/Surg Hx/FS Hx/Imm Hx Endocrine/Hematology History: Denies: Hx Diabetes Cardiovascular History: Denies: Hx Hypertension Infectious Disease History: No Infectious Disease History: Denies: Traveled Outside the [place] in Last 30 Days - Family History Known Family History: Negative: Cardiac Disease, Hypertension, Diabetes - Social History Alcohol Use: None Hx Substance Use: No Substance Use Type: Reports: Cocaine, Heroin Hx Tobacco Use: No Smoking Status (MU): Never Smoked Tobacco Review of Systems Negative: Fever, Chills Eyes: Negative ENT: Negative Cardiovascular: Negative Respiratory: Negative Gastrointestinal: Negative Genitourinary: Negative Skin: Other - abscess on left arm All Other Systems Reviewed And Are Negative: Yes Physical Exam - Summary Physical Exam Summary: VITAL SIGNS: Reviewed. GENERAL: Patient is a well-developed and nourished male who is lying comfortable in the stretcher. Patient is not in any acute respiratory distress. HEAD AND FACE: No signs of trauma. No ecchymosis, hematomas or skull depressions. No sinus tenderness. EYES: PERRLA, EOMI x 2, No injected conjunctiva, no nystagmus. EARS: Hearing grossly intact. Ear canals and tympanic membranes are within normal limits. MOUTH: Oropharynx within normal limits. NECK: Supple, trachea is midline, no adenopathy, no JVD, no carotid bruit, no c- spine tenderness, neck with full ROM. CHEST: Symmetric, no tenderness at palpation LUNGS: Clear to auscultation bilaterally. No wheezing or crackles. CVS: Regular rate and rhythm, S1 and S2 present, no murmurs or gallops appreciated. ABDOMEN: Soft, non-tender. No signs of distention. No rebound no guarding, and no masses palpated. Bowel sounds are normal. EXTREMITIES: FROM in all major joints, no edema, no cyanosis or clubbing. NEURO: Alert and oriented x 3. No acute neurological deficits. Speech is normal and follows commands. SKIN: Dry and warm. LUE: above the left antecubital fossa, pt has an abscess of approximately 4 x 5 cm. There are good pulses and good capillary refill. Triage Information Reviewed: Yes Vital Signs On Initial Exam: Initial Vitals Temp Pulse Resp BP Pulse Ox 98.8 F 72 18 110/58 100 10/26/17 12:59 10/26/17 12:59 10/26/17 12:59 10/26/17 12:59 10/26/17 12:59 Vital Signs Reviewed: Yes Procedures - Procedure Summary Procedure Summary: Procedure - Incision and Drainage Patient positioned appropriately, 5 cc lidocaine with/without epinephrine was used as a local anesthetic. #11 blade scalpel used for single incision. Additional local anesthetic injected into surrounding viable tissue prior to blunt dissection of loculated adhesions. Copious drainage of pus was expressed ( culture obtained). Wound packed with iodoform gauze. Procedure tolerated without complications. Wound dressed with sterile 4x4 gauze and paper tape. - Incision and Drainage Site: left antecubital fossa Anesthesia: Lidocaine - 10 ml of 1% lidocaine Instrument(s): Scalpel Packing: Gauze, Drain Diagnostics - Vital Signs Vital Signs Temp Pulse Resp BP Pulse Ox 10/26/17 12:59 98.8 F 72 18 110/58 100 - Laboratory Lab Statement: Any lab studies that have been ordered have been reviewed, and results considered in the medical decision making process. Re-Evaluation - Re-Evaluation First Eval Re-Evaluation Time: 13:52 Comment: Incision and drainage performed. Course/Dx - Course Course Of Treatment: This pt is a 32 y/o male presenting to [facility] for a left arm abscess. Pt reports he is a current IV drug user. 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 Pt notes his abscess is painful and red. Denies any recent surgeries. Denies any other PMHx. The abscess was I&D. Pt was given Bactrim. He will return to the ED for reassessment of the wound in 2 days. At this point he is feeling better without pain. Therefore, he will be discharged home with follow up from PCP. Pt is hemodynamically stable, alert and oriented x3. He was given a prescription for Bactrim. - Differential Diagnoses - Skin Complaint Differential Diagnoses: Abscess, Cellulitis - Diagnoses Provider Diagnoses: Abscess, Cellulitis Discharge - Discharge Plan Condition: Stable Disposition: HOME Prescriptions: Sulfamethox/Trimethoprim DS* [Bactrim DS 800/160 TAB*] 1 tab PO BID #20 tab Patient Education Materials: Cellulitis (ED), Abscess (ED) Referrals: Carolee Burton MD [Primary Care Provider] - 2 Days Additional Instructions: Please follow up with your primary care provider. RETURN TO THE ED FOR ANY WORSENING SYMPTOMS. The documentation as recorded by the Alvarado nicole Angela accurately reflects the service I personally performed and the decisions made by me, Luis Mejia MD.
== END 2017-10-26 14:28 | disposition home or self-care (01) ==
LOC: ED 12:38
DX: L03.114 Cellulitis of left upper limb (principal); L02.414 Cutaneous abscess of left upper limb
CPT/HCPCS: 10060; 87070; 87077; 87186; 87205; 87640; 87641; 96374; 99282; A9270-GY

== ENCOUNTER 2017-11-20 16:12 | Emergency (ER) | payer OTHER ==
[2017-11-20] MEDS ORDERED: Ibuprofen TAB* 600 MG PO ONE (18:18)
--- NOTE | 2017-11-20 18:19 | ED ---
Lower Extremity - HPI Summary HPI Summary: 32 male presents to ED with complaints of left knee pain that began 3 days ago. States he was in bed and went to bring his knees to his chest when he slightly twisted and heard/felt a pop. Patient states it since has been painful to bend and bear weight. Is able to bear weight and walk. Bending makes the pain the worse. Denies any other complaints, pain or injuries. Did previously fracture lower leg years ago, no previous knee injury. Admits to swelling however states it has improved since yesterday. No numbness/tingling. Took tylenol yesterday, nothing today. No PMHx. - History of Current Complaint Chief Complaint: EDExtremityLower Stated Complaint: LT KNEE PAIN Time Seen by Provider: 11/20/17 16:59 Hx Obtained From: Patient Mechanism Of Injury: Twisted - flexed Onset of Pain: Immediate, Post Accident Onset/Duration: Worse Since Severity Initially: Mild Severity Currently: Moderate Pain Intensity: 6 Pain Scale Used: 0-10 Numeric Timing: Constant - with bending, feeling like going to give out Location: Is Discrete @ - right knee both laterally and medially Character Of Pain: Sharp, Aching Associated Signs And Symptoms: Positive: Swelling, Knee Pain - l Aggravating Factor(s): Movement - flexing, Weight Bearing - slightly Alleviating Factor(s): Rest, Elevation, Ice, OTC Meds - tylenol helped some Able to Bear Weight: Yes - Allergies/Home Medications Allergies/Adverse Reactions: Allergies Allergy/AdvReac Type Severity Reaction Status Date / Time MS Codeine [Codeine] Allergy asthma Verified 05/31/17 22:22 attack MS Diphenhydramine Allergy asthma Verified 05/31/17 22:22 [From Benadryl] attack, sob PMH/Surg Hx/FS Hx/Imm Hx Endocrine/Hematology History: Denies: Hx Diabetes Cardiovascular History: Denies: Hx Hypertension - Surgical History Surgery Procedure, Year, and Place: n/a - Immunization History Immunizations Up to Date: Yes Infectious Disease History: No Infectious Disease History: Denies: Traveled Outside the [place] in Last 30 Days - Family History Known Family History: Negative: Cardiac Disease, Hypertension, Diabetes - Social History Alcohol Use: None Hx Substance Use: No Substance Use Type: Reports: Heroin Hx Tobacco Use: No Smoking Status (MU): Never Smoked Tobacco Review of Systems Constitutional: Negative Cardiovascular: Negative Respiratory: Negative Positive: Arthralgia, Myalgia, Decreased ROM - left knee Skin: Negative Neurological: Negative All Other Systems Reviewed And Are Negative: Yes Physical Exam Triage Information Reviewed: Yes Vital Signs On Initial Exam: Initial Vitals Temp Pulse Resp BP Pulse Ox 96.9 F 75 17 126/57 95 11/20/17 16:33 11/20/17 16:33 11/20/17 16:33 11/20/17 16:33 11/20/17 16:33 Vital Signs Reviewed: Yes Appearance: Positive: Well-Appearing, Well-Nourished, Pain Distress - mild to moderate when flexing Skin: Positive: Warm, Skin Color Reflects Adequate Perfusion, Dry. Negative: Cold, Numb, Cyanosis @, Pale, Weeping Skin/Lesions, Erythema @ Head/Face: Positive: Normal Head/Face Inspection Eyes: Positive: Conjunctiva Clear Respiratory/Lung Sounds: Positive: Clear to Auscultation, Breath Sounds Present. Negative: Rales, Rhonchi, Wheezes Cardiovascular: Positive: Normal, RRR, Pulses are Symmetrical in both Upper and Lower Extremities - 2+ pedal. Negative: Murmur, Rub Musculoskeletal: Positive: Normal, Limited @ - with left knee flexion due to pain, able to bear weight and walk. rest of msk exam normal, Pain @ - left knee lateral and medial per patient. no crepitus, step off, obvious deformity or signs of trauma. no edema or ecchymosis. Negative: Interruption @, Abnormal @, Edema Left, Edema Right Neurological: Positive: Normal, Sensory/Motor Intact, Alert, Oriented to Person Place, Time, CN Intact II-III, Reflexes Intact, NV Bundle Intact Distally, Normal Gait Diagnostics - Vital Signs Vital Signs Temp Pulse Resp BP Pulse Ox 11/20/17 16:33 96.9 F 75 17 126/57 95 - Laboratory Lab Statement: Any lab studies that have been ordered have been reviewed, and results considered in the medical decision making process. - Radiology left knee Xray Interpretation: No Acute Changes - negative exam. normal radiograph of left knee Radiology Interpretation Completed By: ED Physician - Dr Mera and myself Lower Extremity Course/Dx - Course Course Of Treatment: given ibuprofen while in ED. immobilizer applied. continue at home along with RICE. aware of worsening signs and symptoms to watch out for. follow up with pcp. no other concerns at this time. normal physical exam and vitals otherwise. - Diagnoses Differential Diagnosis/HQI/PQRI: Positive: Contusion, Fracture (Closed), Sprain , Strain Provider Diagnoses: Left knee sprain Discharge - Discharge Plan Condition: Good Disposition: HOME Patient Education Materials: Knee Sprain (ED), Knee Immobilizer (ED) Referrals: Carolee Burton MD [Primary Care Provider] - Additional Instructions: Continue taking prescribed ibuprofen as directed. Rest, ice, elevate and avoid overuse. Wear knee immobilizer until symptoms improved. If symptoms worsen, do not improve or persist please seek medical attention promptly, as further imaging and evaluation may be needed. Follow up with PCP.
--- NOTE | 2017-11-20 18:47 | RAD ---
Indication: Left knee pain. 4 views of left knee demonstrates no fracture. No other bone or joint abnormality is identified. No joint effusion is noted. IMPRESSION: UNREMARKABLE LEFT KNEE.
[2017-11-20 19:11] VITALS: BP 108/68
== END 2017-11-20 19:10 | disposition home or self-care (01) ==
LOC: ED 16:12
DX: S83.92XA Sprain of unspecified site of left knee, initial encounter (principal); M25.562 Pain in left knee; X58.XXXA Exposure to other specified factors, initial encounter; Y92.9 Unspecified place or not applicable
CPT/HCPCS: 99282; A9270-GY

== ENCOUNTER 2019-07-28 11:46 | Emergency (ER) | payer OTHER ==
--- NOTE | 2019-07-28 11:58 | ED ---
Psychiatric Complaint - HPI Summary HPI Summary: Patient is a 34 y/o M presenting to [facility] under 945 status with police. Officer Foreign Barker states that the patient had been reported by library security at [facility] [employer]. The patient was observed going to the bathroom and subsequently came out agitated. It is reported that the patient had made statements of SI and was punching the wall of the library to the point that he bloodied his knuckles. The patient admits to making statements of SI but claims he was only venting. Patient states, Im just stressed out and annoyed and just venting and goes on to say, "I have no desire to hurt myself as well as Life is life, it gets stressful sometimes. Patient admits to heroin usage today. He states that he is followed by [facility], is on suboxone, and carries narcan with him. Patient denies Hx of self harm or suicide attempt. He states that he used to drink alcohol heavily five years ago but only drinks rarely at present. Pt does not report any fever, chills, erythema of eyes, sore throat, CP , SOB, cough, abdominal pain, N/V, dysuria, hematuria, myalgia, edema, rash, or dizziness. On triage, pain is rated 0/10, nothing is noted to aggravate/ alleviate Sx. Home medications and allergies are reviewed. - History Of Current Complaint Hx Obtained From: Patient, Other: - police commissioner Foreign Barker Onset/Duration: Still Present Timing: Constant Severity Currently: None - pain denied Character: Depressed, Anxious Aggravating Factor(s): Nothing Alleviating Factor(s): Nothing Associated Signs And Symptoms: Positive: Hostile - punching wall Has Suicidal: Reports: Thoughts - made statements of SI but claims to have been venting - Allergies/Home Medications Allergies/Adverse Reactions: Allergies Allergy/AdvReac Type Severity Reaction Status Date / Time morphine Allergy Unknown Verified 07/28/19 12:02 Reaction Details MS Codeine [Codeine] Allergy asthma Verified 05/31/17 22:22 attack MS Diphenhydramine Allergy asthma Verified 05/31/17 22:22 [From Benadryl] attack, sob Home Medications: Home Medications Buprenorphine HCl/Naloxone HCl [Buprenor-Nalox 12-3 mg Sl Film] 1 film SL DAILY 07/28/19 [History Confirmed 07/28/19] PMH/Surg Hx/FS Hx/Imm Hx Endocrine/Hematology History: Denies: Hx Diabetes Cardiovascular History: Denies: Hx Hypertension - Surgical History Surgery Procedure, Year, and Place: n/a - Family History Known Family History: Negative: Cardiac Disease, Hypertension, Diabetes - Social History Alcohol Use: Rare Hx Substance Use: No Substance Use Type: Reports: Heroin Hx Tobacco Use: No Smoking Status (MU): Never Smoked Tobacco Review of Systems Negative: Fever, Chills Negative: Erythema Negative: Sore Throat Negative: Chest Pain Negative: Shortness Of Breath, Cough Negative: Abdominal Pain, Vomiting, Nausea Negative: dysuria, hematuria Negative: Myalgia, Edema Negative: Rash Neurological: Other - negative - dizzines Psychological: Other - positive - SI reported, punching wall All Other Systems Reviewed And Are Negative: Yes Physical Exam - Summary Physical Exam Summary: Constitutional: Well-developed, Well-nourished, Alert. (-) Distressed Skin: Warm, Dry HENT: Normocephalic; Atraumatic Eyes: Conjunctiva normal Neck: Musculoskeletal ROM normal neck. (-) JVD, (-) Stridor, (-) Tracheal deviation Cardio: Rhythm regular, rate normal, Heart sounds normal; Intact distal pulses; The pedal pulses are 2+ and symmetric. Radial pulses are 2+ and symmetric. (-) Murmur Pulmonary/Chest wall: Effort normal. (-) Respiratory distress, (-) Wheezes, (-) Rales Abd: Soft, (-) tenderness, (-) Distension, (-) Guarding, (-) Rebound Musculoskeletal: (-) Edema Lymph: (-) Cervical adenopathy Neuro: Alert, Oriented x3 Psych: Anxious-appearing and pressure speech. Triage Information Reviewed: Yes Vital Signs On Initial Exam: Initial Vitals Temp Pulse Resp BP Pulse Ox 97.6 F 99 16 143/78 98 07/28/19 11:57 07/28/19 11:57 07/28/19 11:57 07/28/19 11:57 07/28/19 11:57 Vital Signs Reviewed: Yes Procedures - Sedation Patient Received Moderate/Deep Sedation with Procedure: No Diagnostics - Laboratory Result Diagrams: 07/28/19 12:20 07/28/19 12:20 Lab Statement: Any lab studies that have been ordered have been reviewed, and results considered in the medical decision making process. Course/Dx - Course Course Of Treatment: Patient is a 34 y/o M presenting to [facility] under 945 status with police. Officer Foreign Barker states that the patient had been reported by library security at [facility]. The patient was observed going to the bathroom and subsequently came out agitated. It is reported that the patient had made statements of SI and was punching the wall of the library to the point that he bloodied his knuckles. The patient admits to making statements of SI but claims he was only venting. Patient states, Im just stressed out and annoyed and just venting and goes on to say, "I have no desire to hurt myself as well as Life is life, it gets stressful sometimes. Patient admits to heroin usage today. He states that he is followed by [facility], is on suboxone, and carries narcan with him. Patient denies Hx of self harm or suicide attempt. On exam, patient is noted to have pressure speech and to be anxious-appearing. Negative alcohol, acetaminophen, and salicylates noted. TSH WNL. Abnormal values on bloodwork include Hgb 11.3, Hct 34, MCV 79, MCH 26, absolute lymphs 0.8. Patient was medically cleared for [facility]. customer service associate Osiris reports that the patient's case had been reviewed by Dr. Covarrubias, patient will be discharged to home with out-patient follow up. - Differential Dx/Clinical Impression Provider Diagnosis: Heroin abuse - Physician Notifications Discussed Care Of Patient With: Terrell Covarrubias Time Discussed With Above Provider: 15:58 Instructed by Provider To: Other - customer service associate Osiris reports that the patient' s case had been reviewed by Dr. Covarrubias, patient will be discharged to home with out-patient follow up. Discharge ED - Sign-Out/Discharge Documenting (check all that apply): Patient Departure - discharge - Discharge Plan Condition: Stable Disposition: HOME Patient Education Materials: Opioid Withdrawal (ED), Opioid Use Disorder (ED) Referrals: Carolee Burton MD [Primary Care Provider] - - Attestation Statements Document Initiated by Scribe: Yes Documenting Scribe: FOX LIU Provider For Whom Scribe is Documenting (Include Credential): MARINA MOONEY MD Scribe Attestation: I, FOX LIU, scribed for MARINA MOONEY MD on 07/28/19 at 1808. Status of Scribe Document: Ready
--- OUTSIDE RECORDS SUMMARY | 2019-07-28 12:54 | XMS REPORT | Summary of Care ---
:1985 Author Organization [facility] Address [address] [facility] [place] [address] Care Team Providers Name Role Phone Carolee Burton Primary Care Provider Reason for Visit Reason Comments Check Up needs PPD Encounter Details Date Type Department Care Team Description 07/07/2019 Office Visit [facility] Josephine, SOB (shortness of breath) on exertion (Primary Dx); Practice MD Carolee Flu vaccine need; [facility] [place] [address] Iron deficiency; [place], [place] [id number] [place] [address] PPD screening test [phone] Allergies Active Allergy Reactions Severity Noted Date Comments Codeine Respiratory Reaction 06/16/2016 wheezing documented as of this encounter (statuses as of 07/07/2019) Medications Medication Sig Dispensed Refills Start Date End Date Status Acetaminophen (TYLENOL) Take by mouth. 0 Active 325 MG Oral Cap ibuprofen (MOTRIN) 600 Take 1 Tab by 60 Tab 0 01/12/2017 Active MG Oral Tab mouth EVERY SIX HOURS NEEDED for Pain. Additional information Patient taking differently: 200 mg Oral PRN, Pain, Reported on 02/23/2017 10: 59 AM documented as of this encounter (statuses as of 07/07/2019) Active Problems Problem Noted Date Iron deficiency 04/11/2017 documented as of this encounter (statuses as of 07/07/2019) Immunizations Name Administration Dates Next Due Influenza (IM) Preservative Free 07/07/2019 MMR VACCINE 06/16/2016 Toradol (60 mg) 10/09/2016 documented as of this encounter Social History Tobacco Use Types Packs/Day Years Used Date Never Smoker Smokeless Tobacco: Never Used Alcohol Use Drinks/Week oz/Week Comments No Sex Assigned at Date Recorded Not on file Job Start Date Occupation Industry Not on file Not on file Not on file Travel History Travel Start Travel End No recent travel history available. documented as of this encounter Last Filed Vital Signs Vital Sign Reading Time Taken Comments Blood Pressure 112/76 07/07/2019 10:33 AM EDT Pulse 83 07/07/2019 10:33 AM EDT Temperature 37.2 07/07/2019 10:33 AM C (99 EDT F) Respiratory Rate - - Oxygen Saturation 100% 07/07/2019 10:33 AM EDT Inhaled Oxygen Concentration - - Weight 93.8 kg (206 lb 12.8 oz) 07/07/2019 10:33 AM EDT Height 177.8 cm (5' 10") 07/07/2019 10:33 AM EDT Body Mass Index 29.67 07/07/2019 10:33 AM EDT documented in this encounter Patient Instructions Patient InstructionsCarolee Burton MD - 07/07/2019 10:40 AM EDT1. Follow up on 07/10 for PPD reading 2. Schedule PFT,s 3. Follow after the tests and as needed documented in this encounter Progress Notes Carolee Burton MD - 07/07/2019 10:40 AM EDT Patient: Armand Villafuerte Date of Service: 07/07/2019 Subjective: Armand Villafuerte is a 34-y.o. male who presents for Chief Complaint Patient presents with Check Up needs PPD Patient complains of exertional SOB No chest pain, no wheezing Has history of Asthma as a child. Also - Iron deficiency Past Medical History: Diagnosis Date Elbow fracture, right 1994 ORIF. Still has metal in the joint area Outpatient Medications as of 07/07/2019 Medication Sig Dispense Refill Acetaminophen (TYLENOL) 325 MG Oral Cap Take by mouth. ibuprofen (MOTRIN) 600 MG Oral Tab Take 1 Tab by mouth EVERY SIX HOURS NEEDED for Pain. (Patient taking differently: Take 200 mg by mouth NEEDED for Pain.) 60 Tab 0 No current facility-administered medications on file as of 07/07/2019. Allergies Allergen Reactions Codeine Respiratory Reaction wheezing Review of Systems: All remaining review of systems was negative. Objective: BP 112/76 (BP Location: Left arm, Patient Position: Sitting) Pulse 83 Temp 99 F (37.2 C) Ht 5' 10" (1.778 m) Wt 206 lb 12.8 oz (93.8 kg) SpO2 100% BMI 29.67 kg/m2 GENERAL: alert, no distress THROAT: lips, mucosa, and tongue normal: teeth and gums normal NECK: supple, symmetrical, trachea midline and no adenopathy LUNGS: clear to auscultation bilaterally HEART: regular rate and rhythm, S1, S2 normal, no murmur, click, rub or gallop EXTREMITIES: extremities normal, atraumatic, no cyanosis or edema EKG: there are no previous tracings available for comparison, normal sinus rhythm. ICD-9-CM ICD-10-CM 1. SOB (shortness of breath) on exertion 786.05 R06.02 COMPREHENSIVE METABOLIC PANEL THYROID STIMULATING HORMONE FREE T4 CBC WITH DIFFERENTIAL XR CHEST 2 VIEW PA AND LATERAL (STANDARD) 2. Flu vaccine need V04.81 Z23 SC FLU VACCINE PRES FREE 6MOS+ 3. Iron deficiency 280.9 E61.1 FERRITIN IRON Patient Instructions 1. Follow up on 07/10 for PPD reading 2. Schedule PFT,s 3. Follow after the tests and as needed Author: Carolee Burton MD documented in this encounter Plan of Treatment Date Type Specialty Care Team Description 07/10/2019 Nurse/Clinical Support Internal Medicine 07/10/2019 Ancillary Procedure Radiology 07/21/2019 Nurse/Clinical Support Internal Medicine 07/28/2019 Office Visit Family Practice Carolee Burton MD [address] [place] [address] [phone] Name Type Priority Associated Diagnoses Date/Time PPD POCT Routine PPD screening test 07/07/2019 10:48 AM EDT Name Type Priority Associated Diagnoses Order Schedule COMPREHENSIVE METABOLIC Lab Routine SOB (shortness of Ordered: 07/07/2019 PANEL breath) on exertion THYROID STIMULATING Lab Routine SOB (shortness of Ordered: 07/07/2019 HORMONE breath) on exertion FREE T4 Lab Routine SOB (shortness of Ordered: 07/07/2019 breath) on exertion CBC WITH DIFFERENTIAL Lab Routine SOB (shortness of Ordered: 07/07/2019 breath) on exertion XR CHEST 2 VIEW PA AND Imaging Routine SOB (shortness of Ordered: 2018 LATERAL (STANDARD) breath) on exertion FERRITIN Lab Routine Iron deficiency Ordered: 07/07/2019 IRON Lab Routine Iron deficiency Ordered: 07/07/2019 Health Maintenance Due Date Last Done Comments INFLUENZA VACCINE (#1) 2019 DEPRESSION SCREENING 03/24/2020 03/24/2019 COLONOSCOPY SCREENING 02/23/2022 02/23/2017 HPV IMMUNIZATION SERIES Aged Out No longer eligible based on patient's age to complete this topic MENINGOCOCCAL VACCINE IMM Aged Out No longer eligible based on patient's age to complete this topic PNEUMOCOCCAL 0-64 YRS Aged Out No longer eligible based on patient's age to complete this topic documented as of this encounter Results Not on filedocumented in this encounter Visit Diagnoses Diagnosis SOB (shortness of breath) on exertion - Primary Shortness of breath Flu vaccine need Need for prophylactic vaccination and inoculation against influenza Iron deficiency Iron deficiency anemia, unspecified PPD screening test Screening examination for pulmonary tuberculosis documented in this encounter Guarantor Name Account Type Relation to Date of Phone Billing Patient Address Armand Villafuerte Personal/Family 1985 [address] ([address]) [address] [phone] [place], [place] (Work) [id number] documented as of this encounter
[2019-07-28 12:55] LABS: Hematocrit 34 % (42-52); Hemoglobin 11.3 g/dL (14.0-18.0); Mean Corpuscular HGB Conc 33 g/dL (31-36); Mean Corpuscular Hemoglobin 26 pg (27-31); Mean Corpuscular Volume 79 fL (80-94); Red Blood Count 4.36 10^6 /uL (4.18-5.48); Red Cell Distribution Width 13 % (10-15); White Blood Count 4.9 10^3/uL (3.5-10.8)
[2019-07-28 12:58] LABS: ALT 8 U/L (7-52); AST 23 U/L (13-39); Albumin 4.6 g/dL (3.2-5.2); Albumin/Globulin Ratio 1.6 (1-3); Alkaline Phosphatase 54 U/L (34-104); Anion Gap 11 mmol/L (2-11); BUN/Creatinine Ratio 9.4 (8-20); Blood Urea Nitrogen 13 mg/dL (6-24); CO2 Carbon Dioxide 23 mmol/L (22-32); Calcium 9.8 mg/dL (8.6-10.3); Chloride 102 mmol/L (101-111); EGFR African American 70.8 (>60); EGFR Non-African American 58.5 (>60); Globulin 2.9 g/dL (2-4); Glucose 92 mg/dL (70-100); Potassium 3.5 mmol/L (3.5-5.0); Sodium 136 mmol/L (135-145); Total Protein 7.5 g/dL (6.4-8.9)
[2019-07-28 13:06] LABS: Acetaminophen < 15 mcg/mL; Alcohol < 10 mg/dL (<10); Salicylate < 2.50 mg/dL (<30)
[2019-07-28 13:50] LABS: ABS Eosinophils 0.1 10^3/ul (0-0.6); ABS Lymphocytes 0.8 10^3/ul (1.0-4.8); ABS Monocytes 0.3 10^3/ul (0-0.8); ABS Neutrophils 3.7 10^3/ul (1.5-7.7); Eosinophil % 1.2 %; Lymphocyte % 16.9 %; Nucleated Red Blood Cells % 0.1; Platelet Count 151 10^3/uL (150-450)
[2019-07-28 14:21] LABS: TSH (Thyroid Stimulating Horm) 2.14 mcIU/mL (0.34-5.60)
[2019-07-28 16:23] VITALS: BP 104/59
== END 2019-07-28 16:00 | disposition home or self-care (01) ==
LOC: ED 11:46
DX: F11.10 Opioid abuse, uncomplicated (principal); Z79.899 Other long term (current) drug therapy; Z88.5 Allergy status to narcotic agent; Z88.8 Allergy status to other drugs, medicaments and biological substances
CPT/HCPCS: 36415; 80053; 80320; 80329; 84443; 85025; 99285; G0480